=== PATIENT | male | born 1980 | race Native Hawaiian/Other Pacific Islander ===

== ENCOUNTER 2023-04-12 07:02 | Outpatient (CLI) | payer OTHER, SELFPAY ==
--- NOTE | 2023-04-12 07:15 | CRLHL7_ITS ---
For Patients: As a result of the Century Cures Act, medical imaging exams and procedure reports are released immediately into your electronic medical record. You may view this report before your referring provider. If you have questions, please contact your health care provider. INDICATION: Low back pain. TECHNIQUE: Noncontrast sagittal and axial T1, T2, and sagittal STIR sequences are provided. No comparisons. FINDINGS: The overall stature, alignment and intrinsic marrow signal of the lumbar spine is within normal limits. Conus is normal. L5-S1: Trivial posterior disc bulge results in no central canal or foraminal narrowing. Remainder of the lumbar spine is unremarkable, specifically no evidence of suspicious central canal or foraminal narrowing. IMPRESSION: 1. Trivial discogenic degenerative change at L5-S1 resulting in no significant central canal or foraminal narrowing. 2. Otherwise, unremarkable MRI of the lumbar spine. Dictated by Peyman Buitrago MD @ 04/12/2023 8:26:34 PM (Electronically Signed)
== END 2023-04-12 07:03 | disposition home or self-care (01) ==
LOC: MRI 07:03
PROVIDERS: PCP Physician Assistant Medical; Visit Provider Nurse Practitioner Family
DX: M54.50 Low back pain, unspecified (principal); M51.27 Other intervertebral disc displacement, lumbosacral region
CPT/HCPCS: 72148

== ENCOUNTER 2025-04-15 11:07 | Outpatient (CLI) | payer BC, SELFPAY | END 2025-04-15 11:08 | disposition home or self-care (01) | PROVIDERS: Visit Provider Family Medicine | DX: Z00.00 Encounter for general adult medical examination without abnormal findings (principal); Z13.6 Encounter for screening for cardiovascular disorders; Z13.1 Encounter for screening for diabetes mellitus; Z13.0 Encounter for screening for diseases of the blood and blood-forming organs and certain disorders involving the immune mechanism | CPT/HCPCS: 80048; 80061 ==

== ENCOUNTER 2025-05-29 08:36 | Outpatient (CLI) | payer BC, SELFPAY ==
--- NOTE | 2025-06-10 11:43 | W.PM.SLEEP ---
Sleep Study Details Details Interpreting Provider: Naeem Date of Sleep Study: 05/29/25 Sleep Study Details: STUDY TYPE:? Home unattended ? BMI:? 46.36 ORDERING PROVIDER:? Naeem INDICATION:? Concern about sleep apnea ? SLEEP SUMMARY:? 483 minutes monitored RESPIRATORY SUMMARY:? AHI 34 per rule 1A, 26 per CMS guideline Low oxygen 75 6.8% of study oxygen less than 90% Snoring 97% PERIODIC LIMB MOVEMENTS OF SLEEP:? Not recorded CARDIAC:? Range 54-103, mean 76.1 beats per minute IMPRESSION:? Severe obstructive sleep apnea RECOMMENDATION: Treatment options include weight loss and CPAP.
== END 2025-05-29 08:37 | disposition home or self-care (01) ==
LOC: SLEEP 08:37
PROVIDERS: Visit Provider Otolaryngology
DX: G47.33 Obstructive sleep apnea (adult) (pediatric) (principal)
CPT/HCPCS: 95806

== ENCOUNTER 2025-06-16 08:56 | Outpatient (CLI) | payer BC, SELFPAY | END 2025-06-16 08:57 | disposition home or self-care (01) | LOC: NFLDREF 06-18 17:07 | PROVIDERS: PCP Family Medicine; Visit Provider Family Medicine | DX: Z13.29 Encounter for screening for other suspected endocrine disorder (principal); R53.83 Other fatigue | CPT/HCPCS: 84403 ==

== ENCOUNTER 2025-10-07 12:55 | Outpatient (CLI) | payer BC, SELFPAY ==
--- NOTE | 2025-10-07 13:00 | CRLHL7_ITS ---
For Patients: As a result of the Century Cures Act, medical imaging exams and procedure reports are released immediately into your electronic medical record. You may view this report before your referring provider. If you have questions, please contact your health care provider. INDICATION: Dizziness and giddiness TECHNIQUE: TOF MRA of COW with 3D MIP provided. No comparisons. FINDINGS: The visualized first and second order intracranial vessels are unremarkable. Specifically, no suspicious narrowing or aneurysmal dilatation. IMPRESSION: Unremarkable MRA of the head as far as visualized. Dictated by Peyman Buitrago MD @ 10/07/2025 2:18:05 PM (Electronically Signed)
== END 2025-10-07 12:56 | disposition home or self-care (01) ==
LOC: MRI 12:55
PROVIDERS: PCP Family Medicine; Visit Provider Otolaryngology
DX: R42 Dizziness and giddiness (principal)
CPT/HCPCS: 70544